=== PATIENT | male | born 1960 | race Hispanic/Latino ===

== ENCOUNTER 2019-04-16 10:30 | Emergency (ER) | payer SELFPAY ==
[~2019-04-16] VITALS: Ht 175.3 cm; Wt 86.0 kg
[~2019-04-16 10:30] MED LIST: NAPROXEN250 MG PO; ROBAXIN-750750 MG PO
[2019-04-16 11:16] LABS: ANION GAP 14 (6-22 (CALC)); BUN 21 mg/dL (9-20); BUN/CREATININE RATIO 16 (12-20 (CALC)); CARBON DIOXIDE 27 mmol/l (22-30); CHLORIDE 107 mmol/l (95-108); CREATININE 1.3 mg/dL (0.7-1.3); ETHYL ALCOHOL 0 mg/dl (0-30); GFR 57 ML/MIN (>=60 (CALC)); GFR FOR AFR.AMER. > 60 ML/MIN (>=60 (CALC)); POTASSIUM 4.2 mmol/l (3.5-5.1); SODIUM 143 mmol/l (137-146)
[2019-04-16 11:19] LABS: HEMATOCRIT 39.4 % (39.0-50.0); HEMOGLOBIN 12.9 g/dl (14.0-18.0); IMMATURE GRANULOCYTES 0.3 % (0.0-5.0); MEAN CELL VOLUME 85.7 fL CALC (80.0-100.0); MEAN CORPUSCULAR HGB CONC 32.7 g/L CALC (32.0-36.0); NEUT# 4.71 thou/uL (1.82-7.42); RED BLOOD COUNT 4.6 mill/uL (4.70-6.10); RED CELL DISTRI WIDTH 13.9 % (11.5-15.5)
[2019-04-16] MEDS ORDERED: MECLIZINE25 MG PO (12:38)
[2019-04-16 12:49] VITALS: BP 139/65
== END 2019-04-16 13:04 | disposition home or self-care (01) | DRG 149 ==
LOC: ED 10:30
PROVIDERS: Family Medicine
DX: R42 Dizziness and giddiness (principal)
CPT/HCPCS: Q9967

== ENCOUNTER 2019-04-23 13:12 | Emergency (ER) | payer SELFPAY ==
[~2019-04-23] VITALS: Ht 175.3 cm; Wt 100.0 kg
[~2019-04-23 13:12] MED LIST changes: +MECLIZINE25 MG PO
[2019-04-23 14:03] LABS: HEMATOCRIT 38.3 % (39.0-50.0); HEMOGLOBIN 12.7 g/dl (14.0-18.0); IMMATURE GRANULOCYTES 0.6 % (0.0-5.0); MEAN CELL VOLUME 85.5 fL CALC (80.0-100.0); MEAN CORPUSCULAR HGB 28.3 pG CALC (26.0-32.0); MEAN CORPUSCULAR HGB CONC 33.2 g/L CALC (32.0-36.0); NEUT# 4.63 thou/uL (1.82-7.42); RED BLOOD COUNT 4.48 mill/uL (4.70-6.10); RED CELL DISTRI WIDTH 14.3 % (11.5-15.5)
[2019-04-23 14:24] LABS: ALKALINE PHOSPHATASE 119 u/l (38-126); BILIRUBIN, TOTAL 0.6 mg/dL (0.0-1.4); BUN 55 mg/dL (9-20); CHLORIDE 105 mmol/l (95-108); CPK 601 u/l (52-200); SGOT/AST 56 u/l (17-59); SODIUM 140 mmol/l (137-146)
[2019-04-23 14:25] LABS: ALBUMIN 4.9 g/dL (3.2-5.0); ANION GAP 20 (6-22 (CALC)); BUN/CREATININE RATIO 12 (12-20 (CALC)); CARBON DIOXIDE 20 mmol/l (22-30); CREATININE 4.6 mg/dL (0.7-1.3); GFR 13 ML/MIN (>=60 (CALC)); GFR FOR AFR.AMER. 16 ML/MIN (>=60 (CALC)); POTASSIUM 5.4 mmol/l (3.5-5.1); TOTAL PROTEIN 8.6 g/dL (6.3-8.2)
[2019-04-23 14:54] LABS: TSH, 3RD GENERATION 1.19 uIU/mL (0.47 - 4.68)
[2019-04-23 16:58] VITALS: BP 120/72
== END 2019-04-23 17:00 | disposition short-term general hospital (02) | DRG 683 ==
LOC: ED 13:12 → ED-I 13:44 → ED 17:00
PROVIDERS: Emergency Medicine
DX: N17.9 Acute kidney failure, unspecified (principal); M62.82 Rhabdomyolysis; E87.5 Hyperkalemia

== ENCOUNTER 2021-05-19 08:06 | Inpatient (IN) | payer OTHER ==
[~2021-05-19] VITALS: Ht 170.2 cm; Wt 90.3 kg
--- NOTE | 2021-05-19 08:20 | NUR ---
PATIENT AMBULATED TO ROOM WITH STEADY GAIT AND PHYSICIAN NOTIFIED OF PATIENT STSTUA
[2021-05-19 08:51] LABS: HEMATOCRIT 41.2 % (39.0-50.0); IMMATURE GRANULOCYTES 0.2 % (0.0-5.0); MEAN CELL VOLUME 84.9 fL CALC (80.0-100.0); MEAN CORPUSCULAR HGB 28.9 pG CALC (26.0-32.0); NEUT# 3.84 thou/uL (1.82-7.42); RED BLOOD COUNT 4.85 mill/uL (4.70-6.10); RED CELL DISTRI WIDTH 14.3 % (11.5-15.5)
[2021-05-19 09:06] LABS: BILIRUBIN, TOTAL 0.5 mg/dL (0.0-1.4); C-REACTIVE PROTEIN 4.5 mg/dL (0-0.9); POTASSIUM 4.9 mmol/l (3.5-5.1); TOTAL PROTEIN 7.5 g/dL (6.3-8.2)
[2021-05-19 09:09] LABS: ALBUMIN 3.9 g/dL (3.2-5.0); CREATININE 2.4 mg/dL (0.7-1.3)
--- NOTE | 2021-05-19 10:28 | NUR ---
ATTEMPT TO CALL REPORT TO FLOOR
--- NOTE | 2021-05-19 10:40 | NUR ---
REPORT GIVEN TO FLOOR
[2021-05-19 11:05] VITALS: BP 127/45
--- NOTE | 2021-05-19 11:27 | NUR ---
RECEIVED REPORT FROM ER NURSE/CARMENZA ALL QUESTIONS ANSWERED.
--- NOTE | 2021-05-19 11:47 | NUR ---
PT ARRIVED ON FLOOR FROM ER VIA STRETCHER. PT ALERT AND ORIENTED X4 PT DENIES ANY PAIN AT THIS TIME. VS AND ASSESSMENT COMPLETE. LUNG SOUNDS DIMINISHED. ABDOMEN SOFT AND NONTENDER, BOWEL SOUNDS ACTIVE X4 PERIPHERAL PULSES STRONG AND PALPABLE. PT AMBULATORY AND AMBULATED TO BED WITHOUT ANY DISTRESS OR DISCOMFORT. IV PATENT AND FLUSHED. PERRLA. SAFETY PRECAUTIONS ARE IN PLACE AND CALL LIGHT WITHIN PATIENTS REACH. WILL MONITOR PATIENT CLOSELY
[2021-05-19 15:22] VITALS: BP 110/51
--- NOTE | 2021-05-19 16:00 | NUR ---
PT SLEEPING RESTING COMFORTABLY. PT HAS NO NEEDS AT THIS TIME. WILL CONTINUE TO MONITOR PATIENT CLOSELY
[2021-05-19 19:07] VITALS: BP 118/58
--- NOTE | 2021-05-19 20:00 | NUR ---
PATIENT AWAKE IN BED. ROMANSH SPEAKING. ALERT AND ORIENTED X3. ABLE TO MAKE NEEDS KNOWN. C/O COUGH. RESPIRATIONS EVEN AND UNLABORED, HR REG. DENIES PAIN. O2 4L N/C IN PLACE. ON TELEMETRY. VAD S/L. NO ACUTE DISTRESS OBSERVED. ASSESSMENT COMPLETED AND CHARTED. BED IN LOW POSITION. CALL LIGHT WITHIN REACH. FALL PRECAUTIONS IN PLACE.
[2021-05-20 00:55] VITALS: BP 103/48
--- NOTE | 2021-05-20 01:28 | NUR ---
RESTING WITH EYES CLOSED. NO ACUTE DISTRESS OBSERVED.
[2021-05-20 04:35] VITALS: BP 104/49
--- NOTE | 2021-05-20 05:02 | NUR ---
RESTING QUIETLY. NO ACUTE DISTRESS OBSERVED. BED IN LOW POSITION. CALL LIGHT WITHIN REACH.
[2021-05-20 05:42] LABS: HEMATOCRIT 36.9 % (39.0-50.0); IMMATURE GRANULOCYTES 0.2 % (0.0-5.0); MEAN CELL VOLUME 85.8 fL CALC (80.0-100.0); MEAN CORPUSCULAR HGB 27.9 pG CALC (26.0-32.0); MEAN CORPUSCULAR HGB CONC 32.5 g/dL CAL (32.0-36.0); NEUT# 3.12 thou/uL (1.82-7.42); RED BLOOD COUNT 4.3 mill/uL (4.70-6.10); RED CELL DISTRI WIDTH 14.2 % (11.5-15.5)
[2021-05-20 06:11] LABS: ALBUMIN 3.2 g/dL (3.2-5.0); BILIRUBIN, TOTAL 0.3 mg/dL (0.0-1.4); C-REACTIVE PROTEIN 4.7 mg/dL (0-0.9); CREATININE 1.8 mg/dL (0.7-1.3); POTASSIUM 4.9 mmol/l (3.5-5.1); TOTAL PROTEIN 6.4 g/dL (6.3-8.2)
[2021-05-20 08:00] VITALS: BP 109/74
--- NOTE | 2021-05-20 08:00 | NUR ---
PT AWAKE AND RESTING IN BED. PT DENIES PAIN OF SOB. VS AND ASSESSMENT COMPLETE. LUNGS DIMINISHED. ABDOMEN SOFT AND NONTENDER. BOWEL SOUNDS ACTIVE. IV PATENT AND FLUSHED. PERIPHERAL PULSES PALPALBLE. SAFETY PRECAUTIONS IN PLACE AND CALL LIGHT WITHIN PATIENTS REACH. WILL MONITOR PATIENT CLOSELY
[2021-05-20 10:48] VITALS: BP 113/43
--- NOTE | 2021-05-20 12:00 | NUR ---
PT RESTING IN BED. PT DENIES ANY NEEDS OR CONCERNS. SAFETY MEASURES MAINTAINED AND CALL LIGHT WITHIN REACH. WILL CONTINUE TO MONITOR PATIENT CLOSELY
[2021-05-20 15:33] VITALS: BP 119/37
--- NOTE | 2021-05-20 16:00 | NUR ---
PT DENIES PAIN. PT HAS NO NEEDS AT THIS TIME. SAFETY MEASURES MAINTAINED AND CALL LIGHT WITHIN REACH. WILL CONTINUE TO MONITOR PATIENT
[2021-05-20 19:00] VITALS: BP 140/55
--- NOTE | 2021-05-20 19:40 | NUR ---
PATIENT ALERT. PANAMANIAN SPEAKING. OBSERVED SITTING ON SIDE OF BED. ASSESSMENT COMPLETE. NO COMPLAINTS VOICED AT THIS TIME. O2 AT 6L NC. SHORTNESS OF BREATH UPON EXERTION. CALL LIGHT AND BELONGINGS IN REACH.
--- NOTE | 2021-05-20 21:40 | NUR ---
RESPIRATORY CAME TO ROOM DUE TO PATIENTS OXYGEN SATURATION AT 85% ON 6L NC. RESPIRATORY CHANGED PATIENT TO 9L HIGH FLOW. OXYGEN SATURATION WENT UP TO 92%.
--- NOTE | 2021-05-20 22:50 | NUR ---
PATIENT WITH SHORTNESS OF BREATH. ENCOURAGED PATIENT TO LAY PRONE TO HELP INCREASE LUNG EXPANSION. PATIENT ATTEMPTED TOO AND TURNED BACK OVER TO HIS BACK/SIDE AND THEN SAT UP ON SIDE OF BED. OXYGEN SATURATION DECREASED DOWN TO 54% OXYGEN INCREASED TO 74%. RT NOTIFIED.
--- NOTE | 2021-05-20 23:00 | NUR ---
RESPIRATORY INCREASED PATIENTS OXYGEN TO 15L HIGH FLOW. OXYGEN SATURATION RANGING FROM 85%-88%.
--- NOTE | 2021-05-20 23:26 | NUR ---
CALLED DOCTOR BUSINESS DEVELOPMENT EXECUTIVE AND RECEIVED ORDER TO TRANSFER PATIENT TO ICU TO BE PUT ON VAPOTHERM DUE TO DECREASED OXYGEN SATURATIONS.
--- NOTE | 2021-05-20 23:45 | NUR ---
TRANSFERRED PATIENT VIA STRETCHER TO ICU. GAVE REPORT TO ICU NURSE ASSIGNED TO PATIENT.
--- NOTE | 2021-05-20 23:50 | NUR ---
rec'd from medsurg via bed to icu6. no acute resp distress. sao2 93%. o2 cont 15 l/m high flow cannula. translated per hari stuart pt unable to prone. pt c/o sob. air sampling and monitoring shows sinus rhythm hr 76. ivf infusing per [facility] site. fall & air/contact precaution cont.
[2021-05-21] VITALS (16 sets, daily range): BP systolic 113–156; BP diastolic 51–73
--- NOTE | 2021-05-21 02:00 | NUR ---
eyes closed. no resp diff.
--- NOTE | 2021-05-21 04:00 | NUR ---
eyes closed. o2 cont per high flow.
--- NOTE | 2021-05-21 07:00 | NUR ---
ASSUMED CARE OF PT AFTER BEDSDIE REPORT, NO S/S OF DISTRESS NOTED, PT RESTING IN BED, DENIES ANY NEEDS AT THIS TIME
--- NOTE | 2021-05-21 09:45 | NUR ---
PT MEDICATED PER EMAR, DENIES ANY NEEDS OR PAIN, NO S/S OF DISTRESS NOTED.
[2021-05-21 09:56] LABS: HEMATOCRIT 38.8 % (39.0-50.0); HEMOGLOBIN 12.5 g/dl (14.0-18.0); IMMATURE GRANULOCYTES 0.5 % (0.0-5.0); MEAN CELL VOLUME 84.7 fL CALC (80.0-100.0); MEAN CORPUSCULAR HGB 27.3 pG CALC (26.0-32.0); MEAN CORPUSCULAR HGB CONC 32.2 g/dL CAL (32.0-36.0); NEUT# 6.79 thou/uL (1.82-7.42); RED BLOOD COUNT 4.58 mill/uL (4.70-6.10); RED CELL DISTRI WIDTH 14.4 % (11.5-15.5)
[2021-05-21 10:14] LABS: ALBUMIN 3.2 g/dL (3.2-5.0); CREATININE 1.7 mg/dL (0.7-1.3); POTASSIUM 4.4 mmol/l (3.5-5.1); TOTAL PROTEIN 6.6 g/dL (6.3-8.2)
[2021-05-21 10:16] LABS: BILIRUBIN, TOTAL 0.5 mg/dL (0.0-1.4)
--- NOTE | 2021-05-21 11:25 | NUR ---
no changes at this time.
--- NOTE | 2021-05-21 13:30 | NUR ---
PT SITTING ON SIDE OF BED, SOB ON EXERTION, VSS.
--- NOTE | 2021-05-21 14:55 | NUR ---
pt resting in bed, denies needs, laying on right side. no s/s of distress noted
--- NOTE | 2021-05-21 22:00 | NUR ---
watching tv. no distress.
--- NOTE | 2021-05-21 22:00 | NUR ---
awake. no resp diff. o2 cont 15 l/m. lithopone mill worker shows sinus rhythm. #18 rac ns infusing @ 50cchr. po fluids taken fair. voids per urinal. fall & air/contact precautions cont.
[2021-05-22] VITALS (15 sets, daily range): BP systolic 116–155; BP diastolic 41–76
--- NOTE | 2021-05-22 00:05 | NUR ---
eyes closed. no distress. o2 cont.
--- NOTE | 2021-05-22 02:00 | NUR ---
resting quietly. resps even & unlabored. o2 cont.
--- NOTE | 2021-05-22 05:22 | NUR ---
lab here. blood drawn.
[2021-05-22 06:11] LABS: HEMATOCRIT 37.8 % (39.0-50.0); HEMOGLOBIN 12.5 g/dl (14.0-18.0); MEAN CELL VOLUME 83.6 fL CALC (80.0-100.0); MEAN CORPUSCULAR HGB 27.7 pG CALC (26.0-32.0); MEAN CORPUSCULAR HGB CONC 33.1 g/dL CAL (32.0-36.0); RED BLOOD COUNT 4.52 mill/uL (4.70-6.10); RED CELL DISTRI WIDTH 14.4 % (11.5-15.5)
[2021-05-22 06:20] LABS: ANION GAP 13 (6-22 (CALC)); BUN 30 mg/dL (8-23); BUN/CREATININE RATIO 24 (12-20 (CALC)); CARBON DIOXIDE 20 mmol/l (22-30); CHLORIDE 109 mmol/l (95-108); CREATININE 1.3 mg/dL (0.7-1.3); GFR 56 ML/MIN (>=60 (CALC)); GFR FOR AFR.AMER. > 60 ML/MIN (>=60 (CALC)); POTASSIUM 4.8 mmol/l (3.5-5.1); SODIUM 137 mmol/l (137-146)
--- NOTE | 2021-05-22 07:00 | NUR ---
ASSUMED CARE OF PT FROM AMREK BERRY. PT RESTING IN BED, NO S/S OF DISTRESS NOTED.
--- NOTE | 2021-05-22 08:02 | NUR ---
NO CHANGES AT THIS TIME. MATERIALS HANDLING COORDINATOR TO MONITOR.
--- NOTE | 2021-05-22 08:08 | NUR ---
during am assessment of pt, had him take off his pants and underwear, assistted with bed bath, and oral care, pt put in clean gown. no s/s of distress noted
--- NOTE | 2021-05-22 09:30 | NUR ---
PT RESTING IN BED, DENIES ANY NEEDS, NO S/S OF DISTRESS NOTED.
--- NOTE | 2021-05-22 11:30 | NUR ---
PT REFUSED LUNCH TRAY
--- NOTE | 2021-05-22 13:00 | NUR ---
PT UP TO RECLINER. NO S/S OF DISTRESS NOTED
--- NOTE | 2021-05-22 15:30 | NUR ---
PT BACK TO BED, O2 WEANED TO 10L HIGH FLOW CANNULA, NO S/S OF DISTRESS NOTED.
--- NOTE | 2021-05-22 18:00 | NUR ---
PT RESTING IN BED WATCHIN TV, ENCOURAGED TO LAY ON SIDE.
--- NOTE | 2021-05-22 20:00 | NUR ---
PT REPOSITIONS SELF IN BED ALERT COOPERATIVE O2 HFNC AT 10L/MIN SAT 89-93 CHEST WITH DIMINISHED BREATH SOUNDS IV NS INFUSING TO RT AC SITE AT 50CC/HR DENIES C/O VOIDING WELL AND TAKING PO FLUIDS WELL
--- NOTE | 2021-05-22 22:06 | NUR ---
pt restless sitting o side of bed o2 sat drops to low 80s with activity
--- NOTE | 2021-05-22 22:57 | NUR ---
O2 INCREASED TO 12L/MIN VIA HFNC FOR CONSISTANT SATS INHIGH 80S
[2021-05-23] VITALS (18 sets, daily range): BP systolic 122–165; BP diastolic 54–86
--- NOTE | 2021-05-23 00:22 | NUR ---
o2 increased to 15l/min via hfnc for low sats very restless pulling off bp cuff and pulse ox and id band
--- NOTE | 2021-05-23 01:27 | NUR ---
ROBITUSSIN GIVEN FOR COUGH
--- NOTE | 2021-05-23 04:28 | NUR ---
AWAKE NOT RESTLESS SAT DROPS WITH AND ACTIVITY OR COUGHING MONITOR SHOW SR
--- NOTE | 2021-05-23 04:40 | NUR ---
SATS 79% PT SITTING ON SIDE OF BED REFUSES TO PRONE IN BED RT CALLED TO START VAPOTHERM
--- NOTE | 2021-05-23 04:51 | NUR ---
RT HERE PLACED PT ON VAPOTHERM 40L 100% PT REFUSES TO WEAR VAPOTHERM PULLING IT OFF EXPLAINED IN [place] THE INPORTANCE OF LEAVING IT ON AND LYING IN THE PRONE POSITION PT REFUSES TO LIE PRONE.
[2021-05-23 06:06] LABS: HEMATOCRIT 40.2 % (39.0-50.0); HEMOGLOBIN 13.3 g/dl (14.0-18.0); IMMATURE GRANULOCYTES 0.7 % (0.0-5.0); MEAN CELL VOLUME 83.2 fL CALC (80.0-100.0); MEAN CORPUSCULAR HGB 27.5 pG CALC (26.0-32.0); MEAN CORPUSCULAR HGB CONC 33.1 g/dL CAL (32.0-36.0); NEUT# 9.38 thou/uL (1.82-7.42); RED BLOOD COUNT 4.83 mill/uL (4.70-6.10); RED CELL DISTRI WIDTH 14.3 % (11.5-15.5)
[2021-05-23 06:27] LABS: ALBUMIN 3.5 g/dL (3.2-5.0); ALKALINE PHOSPHATASE 114 u/l (38-126); ANION GAP 16 (6-22 (CALC)); BUN 35 mg/dL (8-23); BUN/CREATININE RATIO 29 (12-20 (CALC)); C-REACTIVE PROTEIN 4.7 mg/dL (0-0.9); CARBON DIOXIDE 16 mmol/l (22-30); CHLORIDE 111 mmol/l (95-108); CREATININE 1.2 mg/dL (0.7-1.3); GFR > 60 ML/MIN (>=60 (CALC)); GFR FOR AFR.AMER. > 60 ML/MIN (>=60 (CALC)); POTASSIUM 4.8 mmol/l (3.5-5.1); SGOT/AST 98 u/l (19-48); SODIUM 138 mmol/l (137-146); TOTAL PROTEIN 7.1 g/dL (6.3-8.2)
[2021-05-23 06:39] LABS: BILIRUBIN, TOTAL 0.8 mg/dL (0.0-1.4)
--- NOTE | 2021-05-23 07:05 | NUR ---
REPORT RECEIVED FROM DIAMOND WARE
--- NOTE | 2021-05-23 07:50 | NUR ---
PT RESTING IN SEMI FOWLERS POSITION,A&O X3 WITH TRANSLATION PROVIDED BY JOHANNYRN;PT ASSISTED TO RECLINER WITH X1 ASSIST AND WEAK GAIT;VS OBTAINED AND ASSESSMENT COMPLETED;RESPIRATIONS SHALLOW ON VAPOTHERM 40L AND 100%, DIMINISHED LUNG SOUND WITH NON-PRODUCTIVE COUGH; O2 SATS HIGH 70'S WHILE IN CHAIR;PT EDUCATED ON PRONING POSITION AND VERBALIZES UNDERSTANDING;RE-POSITIONED INTO BED IN PRONE POSITION AND O2 SATS NATALY TO LOW 90'S;ABDOMEN SOFT ON PALPATION AND ACTIVE IN ALL 4 QUADRANTS;STRONG PEDAL PULSES;SKIN INTACT;CARDIAC MONTIORING IN PLACE;#18G TO RAC INFUSING NS @ 50ML/HR,SITE APPEARS HEALTHY;PT REMAINS IN AIR/CONTACT PRECAUTIONS DUE TO COVID19 DX;PT DENIES ANY ADDITIONAL NEEDS AND IS ENCOURAGED TO CALL FOR ASSISTANCE IF NEEDED;FALL PRECAUTIONS IN PLACE WITH BED IN THE LOWEST POSITION AND CALL LIGHT IN REACH;WILL CONTINUE TO MONITOR
--- NOTE | 2021-05-23 08:17 | NUR ---
RT AT BEDSIDE
--- NOTE | 2021-05-23 09:35 | NUR ---
AT BEDSIDE DISCUSSING POC WITH PT.
--- NOTE | 2021-05-23 09:45 | NUR ---
PT MEDICATED WITH PRN TYLENOL 650MG PO FOR GENERALIZED PAIN AT THIS TIME,WILL CONTINUE TO MONITOR FOR EFFECTIVENESS
--- NOTE | 2021-05-23 10:20 | NUR ---
IV SITE REMOVED TO LAC WITH CATHETER INTACT, NEW #22G STARTED TO LW ON 1ST ATTEMPT BY THIS WRITTER.PT TOLERATED WELL;WILL CONTINUE TO MONITOR
--- NOTE | 2021-05-23 11:14 | NUR ---
PT RESTING IN SEMI FOWLERS POSITION;RESPIRATIONS SHALLOW ON VAPOTHERM 40L/100%;PT DENIES ANY CURRENT PAIN OR NEEDS;CARDIAC MONTIORING IN PLACE;IV SITE PATENT INFUSING ABX PER ORDER;PT ENCOURAGED TO CALL FOR ASSISTANCE IF NEEDED;CALL LIGHT IN REACH;WILL CONTINUE TO MONITOR
--- NOTE | 2021-05-23 13:10 | NUR ---
PT RESTING IN SEMI FOWLERS POSITION;RESPIRATIONS REMAIN SHALLOW ON VAPOTHERM 40L AND 100%;PT DENIES ANY CURRENT PAIN OR DISCOMFORTS;CARDIAC MONITORING IN PLACE;IV SITE PATENT INFUSING NS WITH EASE PER ORDER;PT DENIES ANY ADDITIONAL NEEDS AND IS ENCOURAGED TO CALL FOR ASSISTANCE IF NEEDED;CALL LIGHT IN REACH;WILL CONTINUE TO MONITOR
--- NOTE | 2021-05-23 15:10 | NUR ---
PT RESTING AT BEDSIDE;RESPIRATIONS REMAIN SHALLOW ON VAPOTHERM 40L/100%;PT DENIES ANY CURRENT PAIN OR DISCOMFORTS;CARDIAC MONITORING IN PLACE;IV SITE PATENT INFUSING NS WITH EASE PER ORDER;PT DENIES ANY ADDITIONAL NEEDS AND IS ENCOURAGED TO CALL FOR ASSISTANCE IF NEEDED;CALL LIGHT IN REACH;WILL CONTINUE TO MONITOR
--- NOTE | 2021-05-23 17:10 | NUR ---
PT RESTING IN SEMI FOWLERS POSITION;RESPIRATIONS SHALLOW ON VAPOTHERM 40L/100%;PT DENIES ANY CURRENT PAIN OR DISCOMFORTS;CARDIAC MONITORING IN PLACE;PT ASSISTED TO BEDSIDE COMMODE AN HAD ON MODERATE/FORMED BM;PT RE-POSITIONED BACK INTO BED AT THIS TIME;PT DENIES ANY ADDITIONAL NEEDS AND IS ENCOURAGED TO CALL FOR ASSISTANCE IF NEEDED;CALL LIGHT IN REACH;WILL CONTINUE TO MONITOR
--- NOTE | 2021-05-23 19:00 | NUR ---
RECEIVED REPORT FROM NURSE VILLELA, ASSUMED PATIENT CARE, PATIENT APPEARS TO BE SLEEPING WITH EYES CLOSED, NOT IN DISTRESS, CALL LIGHT AT REACH.
--- NOTE | 2021-05-23 20:00 | NUR ---
PATIENT GUINEAN SPEAKING ONLY BUT ABLE TO UNDERSTAND LITTLE HUNGARIAN, REMAINS ON AIR/CONTACT PRECAUTION FOR COVID 19, HOOKED TO VAPOTHERM SETTING 40LPM/FIO2 100%, EXERTIONAL DYSPNEA NOTED, WITH NON PRODUCTIVE COUGH WITHCH PATIENT ALSO TRIED ACTING IT OUT TO DESCRIBE COUGH, LUNG SOUNDS DIMINISHED, ACTIVE BOWEL SOUNDS, LBM 05/23, WITH ONGOING IV NS @ 50CC/HR INFUSING WELL ON LEFT WRIST, CALL LIGHT AT REACH.
--- NOTE | 2021-05-23 22:00 | NUR ---
PATIENT REMOVED BP CUFF, EDUCATED THAT WE NEED IT TO MONITOR VITAL SIGNS, AGREED TO PUT BACK. URINAL EMPTIED.CALL LIGHT AT REACH.
[2021-05-24] VITALS (20 sets, daily range): BP systolic 130–162; BP diastolic 56–86
--- NOTE | 2021-05-24 | NUR ---
SAI C/O COUGHING, REQUESTED COUGH MEDICATION, GIVEN, CURRENTLY RESTING EYES CLOSED, CALL LIGHT AT REACH.
--- NOTE | 2021-05-24 02:13 | NUR ---
PATIENT ACCIDENTALLY PULLED IV, NEW IV REINSERTED ON LEFT FOREARM G 20 PATENT FLUSHES WELL.
--- NOTE | 2021-05-24 04:00 | NUR ---
PATIENT COUGHING SPELL, PATIENT TURNED TO HIS SIDE, REFUSED TO PRONE AT THIS TIME, PATIENT WAS WATCHING TV, NEW SPO2 PROBE PLACE ON PATIENTS RT DIGIT.
[2021-05-24 05:33] LABS: HEMATOCRIT 38.5 % (39.0-50.0); HEMOGLOBIN 12.8 g/dl (14.0-18.0); MEAN CELL VOLUME 83.9 fL CALC (80.0-100.0); MEAN CORPUSCULAR HGB 27.9 pG CALC (26.0-32.0); MEAN CORPUSCULAR HGB CONC 33.2 g/dL CAL (32.0-36.0); RED BLOOD COUNT 4.59 mill/uL (4.70-6.10); RED CELL DISTRI WIDTH 14.3 % (11.5-15.5)
[2021-05-24 05:57] LABS: ANION GAP 14 (6-22 (CALC)); BUN 35 mg/dL (8-23); BUN/CREATININE RATIO 30 (12-20 (CALC)); CARBON DIOXIDE 18 mmol/l (22-30); CHLORIDE 113 mmol/l (95-108); CREATININE 1.2 mg/dL (0.7-1.3); GFR > 60 ML/MIN (>=60 (CALC)); GFR FOR AFR.AMER. > 60 ML/MIN (>=60 (CALC)); POTASSIUM 4.6 mmol/l (3.5-5.1); SODIUM 140 mmol/l (137-146)
--- NOTE | 2021-05-24 06:15 | NUR ---
PATIENT SPO2 RANGING 85-87%, RT AWARE, CURRENTLY ASSESSING PATIENT.PATIENT REFUSES TO TURN ON HIS SIDE ANS REFUSES TO PRONE AT THIS TIME.
--- NOTE | 2021-05-24 06:34 | NUR ---
O2 SATS DROPPED TO LOW 80'S. PT. REFUSES TO PRONE. PLACED NRB OVER VAPOTHERM.
--- NOTE | 2021-05-24 06:37 | NUR ---
RT RAFAEL SOSA PATIENT REMAINS ON SPO2 87%, PATIENT PLACED ON A NON REBREATHER WITH THE VAPOTHERM @ 40LPM FIO2 100%.
--- NOTE | 2021-05-24 07:00 | NUR ---
REPORT RECEIVED FROM DIAMOND URENA
--- NOTE | 2021-05-24 07:15 | NUR ---
PT RESTING IN SEMI FOWLERS POSITION,A&O X3 MOSTLY THAI SPEAKING WITH TRANSLATION PROVIDED BY DIAMOND HUDSON AND JOSE BARROSO;VS OBTAINED AND ASSESSMENT COMPLETED;PT DENIES ANY CURRENT PAIN OR DISCOMFORTS,PAIN SCALE AND REPORTING EDUCATED;RESPIRATIONS SHALLOW ON VAPOTHERM 40L/100% AT THIS TIME WITH O2 SATS HIGH 80'S; PT EDUCATED AND RE-POSITIONED INTO PRONE POSITIONING;CLEAR/DIMINISHED LUNG SOUNDS WITH NON-PRODUCTIVE COUGH;ABDOMEN SOFT ON PALPATION AND ACTIVE IN ALL 4 QUADRANTS;STRONG PEDAL PULSES;SKIN INTACT;CARDIAC MONITORING IN PLACE;#20G TO LFA INFUSING NS @ 50ML/HR,SITE APPEARS HEALTHY;PT REMAINS IN AIR/CONTACT PRECAUTIONS DUE TO COVID19 DX;PT DENIES ANY ADDITIONAL NEEDS AND IS ENCOURAGED TO CALL FOR ASSISTANCE IF NEEDED;FALL PRECAUTIONS IN PLACE WITH BED IN THE LOWEST POSITION AND CALL LIGHT IN REACH;WILL CONTINUE TO MONITOR
--- NOTE | 2021-05-24 08:15 | NUR ---
PT MEDICATED WITH PRN TYLENOL 650MG PO FOR GENERALIZED PAIN RATING 8/10 ON THE PAIN SCALE,WILL CONTINUE TO MONITOR FOR EFFECTIVENESS
--- NOTE | 2021-05-24 09:40 | NUR ---
AT BEDSIDE DISCUSSING POC.
--- NOTE | 2021-05-24 10:47 | NUR ---
XRAY AT BEDSIDE
--- NOTE | 2021-05-24 11:10 | NUR ---
PT RESTING IN SEMI FOWLERS POSITION;RESPIRATIONS SHALLOW ON VAPOTHERM 40L/100% AT THIS TIME;PT DENIES ANY CURRENT PAIN OR DISCOMFORTS;CARDIAC MONITORING IN PLACE;IV SITE PATENT INFUSING ABX WITH EASE;PT DENIES ANY ADDITIONAL NEEDS AND IS ENCOURAGED TO CALL FOR ASSISTANCE IF NEEDED;CALL LIGHT IN REACH;WILL CONTINUE TO MONITOR
--- NOTE | 2021-05-24 13:10 | NUR ---
PT RESTING IN SEMI FOWLERS POSITION;RESPIRATIONS REMAIN SHALLOW ON VAPOTHERM 40L/100%;PT DENIES ANY CURRENT PAIN OR DISCOMFORTS;CARDIAC MONITORING IN PLACE;IV SITE PATENT;PT ASSISTED TO BEDSIDE COMMODE AND HAD ONE LOOSE/BROWN BM;PT RE-POSITIONED BACK INTO BED;PT ENCOURAGED TO CALL FOR ASSISTANCE IF NEEDED;FALL PRECAUTIONS IN PLACE WITH CALL LIGHT IN REACH;WILL CONTINUE TO MONITOR
--- NOTE | 2021-05-24 15:10 | NUR ---
PT RESTING IN SEMI FOWLERS POSITION;RESPIRATIONS SHALLOW ON VAPOTHERM 40L/100%;PT DENIES ANY CURRENT PAIN OR DISCOMFORTS;CARDIAC MONITORING IN PLACE;IV SITE PATENT INFUSING ABX WITH EASE;PT ENCOURAGED TO CALL FOR ASSISTANCE IF NEEDED;CALL LIGHT IN REACH;WILL CONTINUE TO MONITOR
--- NOTE | 2021-05-24 16:27 | NUR ---
RT AT BEDSIDE
--- NOTE | 2021-05-24 17:10 | NUR ---
PT RESTING IN SEMI FOWLERS POSITION;RESPIRATIONS SHALLOW ON VAPOTHERM 40L/100%;PT DENIES ANY CURRENT PAIN OR DISCOMFORTS;CARDIAC MONITORING IN PLACE;IV SITE PATENT;PT ENCOURAGED TO CALL FOR ASSISTANCE IF NEEDED;CALL LIGHT IN REACH;WILL CONTINUE TO MONITOR
--- NOTE | 2021-05-24 19:30 | NUR ---
awake. no acute distress. o2 cont 40 l/m 100% vapotherm. director of cardiac rehabilitation shows sinus rhythm hr 86. #20 lfa saline lock. po fluids taken fair. voids per urinal. fall & air/contact precautions cont.
--- NOTE | 2021-05-24 22:00 | NUR ---
eyes closed. no distress. equipment monitor phototypesetting shows sinus rhythm hr 80.
[2021-05-25] VITALS (29 sets, daily range): BP systolic 76–167; BP diastolic 46–81
--- NOTE | 2021-05-25 00:01 | NUR ---
o2 cont per vapotherm. no distress.
--- NOTE | 2021-05-25 01:45 | NUR ---
sao2 shows 74%. nasal cannula off of vapotherm tubing-reattached. sao2 up to 85%. rt here. 100% nrb placed & pt immediately removed. sao2 85-89%. no acute distress.
--- NOTE | 2021-05-25 02:30 | NUR ---
pt put nrb back on (for now). sao2 91-93%.
--- NOTE | 2021-05-25 05:15 | NUR ---
lab here. blood drawn.
[2021-05-25 05:51] LABS: HEMATOCRIT 39.5 % (39.0-50.0); HEMOGLOBIN 12.9 g/dl (14.0-18.0); IMMATURE GRANULOCYTES 2.5 % (0.0-5.0); MEAN CELL VOLUME 84.4 fL CALC (80.0-100.0); MEAN CORPUSCULAR HGB 27.6 pG CALC (26.0-32.0); MEAN CORPUSCULAR HGB CONC 32.7 g/dL CAL (32.0-36.0); NEUT# 11.1 thou/uL (1.82-7.42); RED BLOOD COUNT 4.68 mill/uL (4.70-6.10); RED CELL DISTRI WIDTH 14.1 % (11.5-15.5)
[2021-05-25 06:22] LABS: ALBUMIN 3.3 g/dL (3.2-5.0); ALKALINE PHOSPHATASE 119 u/l (38-126); ANION GAP 12 (6-22 (CALC)); BILIRUBIN, TOTAL 0.9 mg/dL (0.0-1.4); BUN 36 mg/dL (8-23); BUN/CREATININE RATIO 28 (12-20 (CALC)); C-REACTIVE PROTEIN 4.4 mg/dL (0-0.9); CARBON DIOXIDE 20 mmol/l (22-30); CHLORIDE 113 mmol/l (95-108); CREATININE 1.3 mg/dL (0.7-1.3); GFR 56 ML/MIN (>=60 (CALC)); GFR FOR AFR.AMER. > 60 ML/MIN (>=60 (CALC)); POTASSIUM 4.6 mmol/l (3.5-5.1); SGOT/AST 95 u/l (19-48); SODIUM 140 mmol/l (137-146); TOTAL PROTEIN 6.8 g/dL (6.3-8.2)
--- NOTE | 2021-05-25 06:50 | NUR ---
PT SITTING ON THE SIDE OF THE BED. A&O X3. LABORED BREATHING NOTED, VERBAL RELAXATION QUES GIVEN PT APPEARS ANXIOUS , PT NOT RECEPTIVE AT THIS TIME. REPORTS INCREASING DIFFICULTY WITH BREATHING. VAPOTHERM IN PLACE 40L/100% WITH NRB. O2 IN THE MID 80'S. RT NOTIFIED. PT EDUCATED ON THE IMPORTANCE OF PRONING, PT REFUSING TO DO SO AT THIS TIME. CLEAR/DIMINISHED BREATH SOUNDS UPON AUSCULTATION. ACTIVE BOWEL SOUNDS X4, BM 05/24. CURRENTLY ST ON MONITOR WITH A RATE OF 102. #20G LFA HEALTHY AND PATENT. ASSESSMENT COMPLETED. DISCUSSED POC, REINFORCEMENT NEEDED. ISOLATION PRECUATIONS IN PLACE. CALL LIGHT WITHIN REACH.
--- NOTE | 2021-05-25 07:00 | NUR ---
Law [employer] RT AT BEDSIDE. O2 VIA NC & VAPO 86-87%. PT CHANGED TO BIPAP, PT APPEARING ANXIOUS, PT INSTRUCTED TO KEEP BIPAP IN PLACE. O2 NOW 92%. EDUCATED THE PT ON THE NEED FOR BIPAP. CALL LIGHT WITHIN REACH.
--- NOTE | 2021-05-25 07:10 | NUR ---
VERBAL ORDER OBTAINED FOR ATIVAN 1 MG X1 AND XANAX 0.25 MG PO Q6 PRN FOR ANXIETY.
--- NOTE | 2021-05-25 07:20 | NUR ---
IV ATIVAN GIVEN. IV REMAINS HEALTHY AND PATENT. PT ADVISED TO KEEP BIPAP ON. O2 TO BE MONITORED.
--- NOTE | 2021-05-25 07:30 | NUR ---
PT RESTLESS AND AGITATED. PT ATTMEPTING TO GET OUT OF BED, COMBATIVE, BIPAP REMOVED AND BROKEN APART PT REFUSING TO PUT IT BACK ON. O2 65-68%. RAPID RESPONSE CALLED. DR LIAO NOTIFIED. PT TO BE INTUBATED.
--- NOTE | 2021-05-25 07:40 | NUR ---
@ 0740 - RT, Law FIELDS, THIS KEG RAISER, AND Celestino MELENDEZ CRNA AT BEDSIDE FOR INTUBATION. 150 DIPROVAN MG AND 120 MG ANECTINE IVP ADMINISTERED BY Celestino MELENDEZ CRNA. 8 ETTUBE, 23 LIP LINE SECURED WITH MCGRATH, 250 ML NS BOLUS ADMINISTERED PRIOR TO INITIATING PROPOFOL DRIP. PROPOFOL 30 MCG INFUSING. 8 MG VECRONIUM IVP GIVEN BY COMMUNITY LIVING SPECIALIST. BILATERAL SOFT WRIST RESTRAINTS PLACED @0800 - #18G RAC INITIATED & 16F NG TUBE PLACED BY Taylor INMAN RN @0810 PROPOFOL SET AT 20 MCG/KG/MIN @0815 - RADIOLODY AT BEDSIDE FOR STAT CXR.
--- NOTE | 2021-05-25 08:55 | NUR ---
RT AT BEDSIDE OBTAINING EKG
--- NOTE | 2021-05-25 09:21 | NUR ---
DR LIAO NOTIFED OF PTS RESTLESSNESS, PROPOFOL 60 MCG/KG/MIN. PT REMAINS WITH EYES CLOSED BUT TURNING HEAD WITH INCREASED RR. VERBAL ORDER OBTAINED TO START VERSED & LEVOPHED. ORDER FAXED TO PHARMACY.
--- NOTE | 2021-05-25 10:38 | NUR ---
abg obtained. informed of critical results. relayed messaage to sales engineer that giv ept time to rest, it pt status deteriorates inform. increase peep when pot bp stablilizes. sales engineer to mariano.
--- NOTE | 2021-05-25 12:10 | NUR ---
PT INTUBATED AND SEDATED. SR ON MONITOR WITH A READING OF 90 BPM. IVS X3 HEALTHY AND PATENT.
--- NOTE | 2021-05-25 12:22 | NUR ---
no changes at this time. barrel cutter to monitor.
--- NOTE | 2021-05-25 13:06 | NUR ---
DR ZAMORANO AT BEDSIDE ATTEMPTING TO PLACE CENTRAL LINE
--- NOTE | 2021-05-25 14:00 | NUR ---
PT REMAINS INTUBATED AND SEDATED. IV DRIPS REMAINS UNCHANGED. CENTRAL LINE REMAINS HEALTHY AND PATENT.
--- NOTE | 2021-05-25 16:00 | NUR ---
PT REMAINS INTUBATED AND SEDATED. LEVOPHED AT 6 MCG/KG/MIN, PROPOFOL 60 MCG/MIN, VERSED 40 ML/HR . COPPOLA TO GRAVITY. #18G RAC REMAINS, #20G'S X2 REMOVED FROM LFA. NG TUBE TO RT NARE HEALTHY, SET TO LIS. GREEN COLORED OUTPUT NOTED. CURRENTLY SR ON MONITOR; O2 95%.
--- NOTE | 2021-05-25 17:49 | NUR ---
PT INTUBATED AND SEDATED. ORAL CARE PROVIDED. PILLOW PLACED ON RT SIDE. PT SUCTIONED WITH YANKER. 300 CC OF YELLOW URINE EMPTIED. BILATERAL SCDS IN PLACE. LEVOPHED 5 MCG/KG. O2 97%. SR WITH A RATE OF 92.
--- NOTE | 2021-05-25 18:36 | NUR ---
CALLED [facility] FOR A PLACEMENT ON THIS PATIENT. SPOKE TO BEN AND WAS GIVEN CONFIRMATION NUMBER [id number].
--- NOTE | 2021-05-25 19:05 | NUR ---
vent cont assisted by pt. manager commission shows sinus rhythm hr 76. ivf infusing per lt subcl tlc. ngt in place draining green. gaona cath in place urine clear yellow. bilat wrist restraints, scds, fall & air/contact precautions cont. requires total care for all needs. turned & repositioned.
--- NOTE | 2021-05-25 22:00 | NUR ---
vent cont assisted by pt. monitoring and evaluation advisor shows sinus rhythm hr 74.
[2021-05-26] VITALS (27 sets, daily range): BP systolic 95–147; BP diastolic 54–74
--- NOTE | 2021-05-26 00:01 | NUR ---
vent cont assisted by pt. no distress. gaona draining well.
--- NOTE | 2021-05-26 02:00 | NUR ---
vent cont assisted by pt. pickling drum operator shows sinus rhythm hr 74.
--- NOTE | 2021-05-26 03:00 | NUR ---
bath given x2 assists. transferred to bed with air mattress x4 assists.
--- NOTE | 2021-05-26 03:30 | NUR ---
blood drawn & sent to lab.
--- NOTE | 2021-05-26 05:24 | NUR ---
rt here. blood drawn.
[2021-05-26 05:53] LABS: HEMATOCRIT 38.2 % (39.0-50.0); HEMOGLOBIN 11.9 g/dl (14.0-18.0); IMMATURE GRANULOCYTES 4.2 % (0.0-5.0); MEAN CORPUSCULAR HGB 28.1 pG CALC (26.0-32.0); MEAN CORPUSCULAR HGB CONC 31.2 g/dL CAL (32.0-36.0); NEUT# 9.74 thou/uL (1.82-7.42); RED BLOOD COUNT 4.23 mill/uL (4.70-6.10); RED CELL DISTRI WIDTH 14.9 % (11.5-15.5)
[2021-05-26 05:56] LABS: MEAN CELL VOLUME 90.3 fL CALC (80.0-100.0)
--- NOTE | 2021-05-26 06:00 | NUR ---
xray here. pcxr obtained.
--- NOTE | 2021-05-26 06:50 | NUR ---
ASSUMED CARE OF PT. PT INTUBATED AND SEDATED WWITH DRIPS INFUSING PER EMAR. NO S/S OF DISTRESS NOTED.
[2021-05-26 07:28] LABS: CREATININE 3.2 mg/dL (0.7-1.3); MAGNESIUM 2.7 mg/dL (1.6-2.3); POTASSIUM 5.6 mmol/l (3.5-5.1)
--- NOTE | 2021-05-26 08:30 | NUR ---
LEVO GTT TO 2 MCGS
--- NOTE | 2021-05-26 08:56 | NUR ---
PEEP DECREASED TO +8.
--- NOTE | 2021-05-26 10:00 | NUR ---
LEVO GTT OFF, VSS, NO S/S OF DISTRESS NOTED.
--- NOTE | 2021-05-26 13:00 | NUR ---
PT INTUBATED AND SEDATED, NO CHANGES IN CONDITION. NO S/S OF DISTRESS NOTED.
--- NOTE | 2021-05-26 15:00 | NUR ---
NO CHANGES IN PT CONDITION NOTED. MEDICATED PER EMAR.
--- NOTE | 2021-05-26 17:45 | NUR ---
PT CONDITION UNCHANGED, LEVO GTT STILL ON HOLD, NO S/S OF DISTRESS NOTED.
--- NOTE | 2021-05-26 19:00 | NUR ---
REPORT RECEIVED FROM Marycruz HILLIARD RN, CARE OF PT ASSUMED AT THIS TIME.
[2021-05-27] VITALS (33 sets, daily range): BP systolic 114–160; BP diastolic 54–78
--- NOTE | 2021-05-27 04:38 | NUR ---
PCXR IN ROOM.
[2021-05-27 05:37] LABS: HEMATOCRIT 33.8 % (39.0-50.0); HEMOGLOBIN 10.8 g/dl (14.0-18.0); MEAN CORPUSCULAR HGB 28.1 pG CALC (26.0-32.0); NEUT# 6.84 thou/uL (1.82-7.42); RED BLOOD COUNT 3.84 mill/uL (4.70-6.10); RED CELL DISTRI WIDTH 14.9 % (11.5-15.5)
--- NOTE | 2021-05-27 05:57 | NUR ---
Deya BLACK SHEET ROCK FINISHER IN ROOM COLLECTING ABG.
[2021-05-27 06:02] LABS: C-REACTIVE PROTEIN 5.6 mg/dL (0-0.9); CREATININE 4.1 mg/dL (0.7-1.3)
[2021-05-27 06:09] LABS: POTASSIUM 5.2 mmol/l (3.5-5.1)
[2021-05-27 06:36] LABS: IMMATURE GRANULOCYTES 7.4 % (0.0-5.0)
--- NOTE | 2021-05-27 07:00 | NUR ---
ASSUMED CARE OF PT. INTUBATED AND SEDATED PER EMAR. NO S/S OF DISTRESS NOTED.
--- NOTE | 2021-05-27 15:30 | NUR ---
BATHED PT, AND DID LINEN CHANGE WITH Celestino JOHNSON CNA. NO S/S OF DISTRESS NOTED
--- NOTE | 2021-05-27 15:50 | NUR ---
SPOKE WITH TAYE, [phone], PT EMERGENCY CONTACT, ABOUT PT CONDITION AND THE NEED TO SPEAK WITH FAMILY MEMBERS. SHE WOULD LIKE TO COME IN TO SEE PT.
--- NOTE | 2021-05-27 20:00 | NUR ---
REMAINS INTUBATED AND ON VENT. VENT SETTINGS PER VENT INTERVENTION DOCUMENTATION. LSCTLC IN PLACE WITH PROPOFOL GTT AT 60 MCG/KG/MIN AND VERSED AT 4 MG/HR FOR SEDATION, RASS -4. PATIENT ASSISTING VENT. BREATH SOUNDS DIMINISHED THROUGHOUT LUNG SIMON. SHIFT ASSESSMENT COMPLETED. SCDS IN PLACE BILATERALLY. PATIENT ON AIR MATTRESS. AIR SCRUBBER ON IN ROOM. BILATERAL WRIST RESTRAINTS IN PLACE. VSS. TURNED AND REPOSITIONED. SR-ST ON MONITOR.
--- NOTE | 2021-05-27 20:25 | NUR ---
CALL TO DR NGUYEN REGARDING NEED FOR CLARIFICATION (PER [facility]) OF SODIUM BICARB ORDER. PER DR SAMUEL HOLD OFF ON SODIUM BICARB FOR TONIGHT AND CONTINUE IVF OF NS AT 50 ML/HR.
--- NOTE | 2021-05-27 22:00 | NUR ---
SEDATED ON VENT. REPOSITIONED. VSS. ST ON MONITOR.
[2021-05-28] VITALS (20 sets, daily range): BP systolic 102–170; BP diastolic 49–80
--- NOTE | 2021-05-28 | NUR ---
NO CHANGES TO REPORT. SAME VENT SETTINGS. VSS. ST ON MONITOR.
--- NOTE | 2021-05-28 01:06 | NUR ---
PATIENT RESP RATE IN HIGH 40'S LOW 50'S. VENT REPEATEDLY ALARMING. VERSED GTT INCREASED TO 5 MG/HR. PATIENT MEDICATED WITH FENTANYL 50 MCG IV ORDERED.
--- NOTE | 2021-05-28 01:20 | NUR ---
PATIENT RESP RATE NOW IN THE 30'S AT THIS TIME.
--- NOTE | 2021-05-28 02:00 | NUR ---
ST ON MONITOR. BP TRENDING UP. SAME VENT SETTINGS.
--- NOTE | 2021-05-28 03:30 | NUR ---
HEART RATE UP TO 130'S. RR 40'S. BP 168/80. LOPRESSOR 5 MG IVP FOR ELEVATED HR.
--- NOTE | 2021-05-28 04:15 | NUR ---
COMPLETE BED BATH GIVEN AND LINEN CHANGE DONE.
--- NOTE | 2021-05-28 05:20 | NUR ---
BLOOD DRAWN FROM CT FOR AM LABS. TLC PORTS FLUSHED AND PATENT.
--- NOTE | 2021-05-28 05:30 | NUR ---
RR IN THE 40'S. SATS 88-91% WADNER /RT. VENT ALARMING. SUX PER RT.
--- NOTE | 2021-05-28 05:46 | NUR ---
MEDICATED WITH FENTANYL 50 MCG IV ORDERED. VENT CHANGES PER RT-O2 INCREASED TO 100%, PEEP INCREASED TO 10.
[2021-05-28 05:49] LABS: URINE BILIRUBIN - DIPSTICK NEGATIVE (NEGATIVE); URINE BLOOD DIPSTICK NEGATIVE (NEGATIVE); URINE CLARITY CLOUDY; URINE COLOR YELLOW; URINE GLUCOSE - DIPSTICK NEGATIVE (NEGATIVE); URINE KETONE NEGATIVE (NEGATIVE); URINE LEUK ESTERASE NEGATIVE (Negative); URINE NITRITE - DIPSTICK NEGATIVE (Negative); URINE PH 5.5 (4.5-8.0); URINE PROTEIN - DIPSTICK TRACE mg/dL (NEG-TRACE); URINE UROBILINOGEN - DIPSTICK 0.2 E.U./dL (0.2)
--- NOTE | 2021-05-28 06:06 | NUR ---
ABG RESULTS CALLED TO [facility] BY [facility]/.
[2021-05-28 06:08] LABS: ALBUMIN 2.8 g/dL (3.2-5.0); CREATININE 4.6 mg/dL (0.7-1.3)
[2021-05-28 06:21] LABS: POTASSIUM 5.7 mmol/l (3.5-5.1)
--- NOTE | 2021-05-28 06:30 | NUR ---
DR LIAO PHONED BY [facility] WITH ABG RESULTS. NO ANSWER.
--- NOTE | 2021-05-28 06:40 | NUR ---
DR LIAO RETURNED CALL, ABG RESULTS REPORTED BY WAYNE. NEW ORDERS RECEIVED BY WAYNE TO INCREASE A/C RATE TO 28.
--- NOTE | 2021-05-28 07:00 | NUR ---
ASSUMED CARE OF PT FROM [facility]. UPON ASSESSMENT OF PT AT BEDSIDE REPORT WE DISCOVERED THE COPPOLA WAS CLOGGED. AFTER FLUSHING, 1300ML OF YELLOW URINE WITH SEDIMENT DRAINED. PT HR IS ST 130S. WILL MEDICATE WITH PRN MEDICATION WHEN DUE AT 930 PER EMAR. GTTS INFUSING PER EMAR. CALLED MITCHEL IN PHARMACY TO DISCUSS VERIFYING BICARB GTT THAT NEPHROLOGY ORDERED AT 1905 YESTERDAY.SHE IS CLARIFYING ORDER WITH MD. WILL CONTINUE CARE.
--- NOTE | 2021-05-28 20:00 | NUR ---
CONSTANTINET REMAINS INTUBATED AND ON VENT. VENT SETTINGS PER INTERVENTION SCREEN. RR 30'S. O2 SAT LOW 90'S. BREATH SOUNDS COARSE THROUGHOUT. SEDATED ON PROPOFOL GTT AT 60 MCG/KG/MIN AND VERSED GTT AT 60 MG/HR. RASS -4. SCD'S IN PLACE BILATERALLY. AIR MATTRESS IN USE. AIR SCRUBBER IN USE IN ROOM SHIFT ASSESSMENT COMPLETED. CARDIAC MOITOR SHOWS SR, HR 90'S.
--- NOTE | 2021-05-28 22:00 | NUR ---
VSS. REPOSITIONED. SR ON MONITOR.
--- NOTE | 2021-05-28 23:30 | NUR ---
O2 SAT 88-90% RR 40'S. HR 90'S. LAVAGED AND SUX ETT FOR SMALL AMOUNT OF THIN SECRETIONS. MEDICATED WITH FENTANYL 50 MCG IV ORDERED. CALLED RT TO EVALUATE PATIENT.
--- NOTE | 2021-05-28 23:40 | NUR ---
PEEP INCREASED FROM 10 TO 15 BY RT. O2 SAT 91-92%
[2021-05-29] VITALS (21 sets, daily range): BP systolic 87–155; BP diastolic 49–69
--- NOTE | 2021-05-29 02:00 | NUR ---
O2 SAT 89-91% WILL CONTIUE TO MONITOR PATIENT CLOSELY.
--- NOTE | 2021-05-29 04:15 | NUR ---
O2 SATS DROPPING TO 82-85% SUX PER ETT FOR MODERATE AMOUNT OF YELLOW, PINK TINGED SECRETIONS.
--- NOTE | 2021-05-29 04:45 | NUR ---
RT HERE FOR BLOOD DRAW FOR AM ABGS. PATIENT TURNED TO PRONE POSITION WITH ASSIST OF 4 NURSES AND RT.
--- NOTE | 2021-05-29 05:15 | NUR ---
O2 SAT VERY GRADUALLY PICKING UP TO MID 80'S. CONTINUES TO REST IN PRONE POSITION.
--- NOTE | 2021-05-29 06:00 | NUR ---
O2 SAT 88-91% PATIENT REMAINS INTUBATED ON VENT. SEDATED ON PROPOFOL AND VERSED GTTS WITH RASS -5.
[2021-05-29 06:18] LABS: HEMATOCRIT 35.5 % (39.0-50.0); IMMATURE GRANULOCYTES 2.3 % (0.0-5.0); MEAN CELL VOLUME 90.8 fL CALC (80.0-100.0); MEAN CORPUSCULAR HGB 28.1 pG CALC (26.0-32.0); NEUT# 13.31 thou/uL (1.82-7.42); RED BLOOD COUNT 3.91 mill/uL (4.70-6.10); RED CELL DISTRI WIDTH 16.2 % (11.5-15.5)
[2021-05-29 06:34] LABS: ALBUMIN 2.5 g/dL (3.2-5.0)
[2021-05-29 06:40] LABS: ALBUMIN 2.5 g/dL (3.2-5.0); BILIRUBIN, TOTAL 0.6 mg/dL (0.0-1.4); TOTAL PROTEIN 5.8 g/dL (6.3-8.2)
[2021-05-29 06:42] LABS: POTASSIUM 5.9 mmol/l (3.5-5.1)
[2021-05-29 06:43] LABS: CREATININE 7.4 mg/dL (0.7-1.3)
[2021-05-29 06:44] LABS: CREATININE 7.3 mg/dL (0.7-1.3)
[2021-05-29 06:51] LABS: C-REACTIVE PROTEIN 23.2 mg/dL (0-0.9)
--- NOTE | 2021-05-29 09:40 | NUR ---
FACETIMED WITH PT EMERGENCY CONTACT, SHE STATES SHE DOES NOT KNOW THIS MOJGAN AND THIS IS NOT THE PERSON SHE THOUGHT WE WERE CONTACTING HER ABOUT
--- NOTE | 2021-05-29 10:00 | NUR ---
CHARGING PT CELL PHONE IN ATTEMPT TO FIND FAMILY MEMBERS. RETURNED A PHONE CALL FOR A NUMBER WHO HAS BEEN CALLING HIM EVERYDAY AND REACHED A SISTER, DR. MCCARTHY SPOKE WITH CHRISTINE BEFORE THE CALL DISCONNECTED. CAONTINUED TO HAVE PHONE CHARGING AT STATION
--- NOTE | 2021-05-29 11:30 | NUR ---
RECIEVED A FACETIME CALL FROM Chaparro HERNANDEZ IN HIS CONTACTS. FROM [phone]. STATES HE IS PTS OLDER BROTHER. SHOWED HIM HIS BROTHER, AND THEN LET HIM SPEAK WITH ABOUT PT CONDITION WITH [facility] TRANSLATING AND RE ENFORCING PT CONDITION AND ANSWERING ANY FURTHER QUESTIONS. HE STATED HE WILL CALL BACK AFTER SPEAKING WITH CHILDREN TO LET US KNOW CODE STATUS. NO FAMILY IS LOCAL, ALL ARE IN [place].
--- NOTE | 2021-05-29 14:36 | NUR ---
ET TUBE ADVANCED TO 27@ LIP.
--- NOTE | 2021-05-29 20:00 | NUR ---
PATIENT REMAINS INTUBATED AND ON VENT. SEDATED ON PROPOFOL GTT WITH RASS -5. O2 SATS CONTINUE TO RUN IN THE MID 80'S. PATIENT RESTING IN SUPINE POSITION THERE WAS NO IMPROVEMENT IN O2 SATS WHILE PRONING EARLIER TODAY. BP STABLE ON LEVOPHED GTT. TOW MOTOR DRIVER SHOWS ST, HR 120'S. SHIFT ASSESSMENT COMPLETED.
--- NOTE | 2021-05-29 20:10 | NUR ---
PATIENT BROTHER RAFAELA PHONED IN FOR UPDATE, INFORMED HIM OF CRITICAL CONDITION OF HIS BROTHER, HE STATES THEY HAVE NOT MADE A DECISION ON DRN STATUS.
--- NOTE | 2021-05-29 21:00 | NUR ---
BP 99/S. PROPOFOL DEREASED TO 50 MCG/KG/MIN.
--- NOTE | 2021-05-29 22:00 | NUR ---
TEMP 101. MEDICATED WITH TYLENOL 60 MG RECTAL SUPPOSITORY. TURNED AND REPOSITIONED PATIENT. ICE PACKS TO AXILLA AND BASE OF NECK. O2 SATS HAVE DROPPED TO 74-77% CALL TO RT TO EVALUATE PATIENT. SUX PER ETT AND ORALLY FOR SCANT AMOUNT OF SECRETIONS.
--- NOTE | 2021-05-29 22:03 | NUR ---
MEDICATED WITH FENTANYL 50 MCG ORDERED.
--- NOTE | 2021-05-29 22:05 | NUR ---
CALL TO DR HURD AND INFORMED HIM OF DOP IN O2 SATS, RR, HR 130'S AND BP. NO NEW ORDERS AT THIS TIME.
--- NOTE | 2021-05-29 23:00 | NUR ---
O2 SAT CONTINUES 78% SAME VENT SETTINGS EARLIER. ST ON MONITOR, HR 130'S.
[2021-05-30] VITALS (45 sets, daily range): BP systolic 66–114; BP diastolic 43–55
--- NOTE | 2021-05-30 | NUR ---
NO CAHNGES TO REPORT. O2 SAT REMAINS IN THE 70'S. ST ON MONITOR, 130'S.
--- NOTE | 2021-05-30 01:00 | NUR ---
02 SATS REMAIN IN THE 70'S. ST ON MONITOR, HR 130'S.
--- NOTE | 2021-05-30 02:00 | NUR ---
NO CHANGES TO REPORT. PATIENT REMAINS INTUBATED AND SEDATED, WEANING PROPOFOL D/T HYPOTENSION-CURRENTLY AT 30 MCG. LEVOPHED AT [address] ON MONITOR.
--- NOTE | 2021-05-30 03:00 | NUR ---
COMPLETE BED BATH AND LINENS CHANGED. REPOSITONED IN BED.
--- NOTE | 2021-05-30 04:00 | NUR ---
PROPOFOL CURRENTLY AT 20 MCG/ RASS -5. LEVOPHED AT 8 MCG. O2 SAT REMAIN IN THE 70'S. VENT SETTINGS UNCHANGED. CONTINUES IN ST ON MONITOR, HR 120'S.
[2021-05-30 05:17] LABS: BASO% 0 % (0-3); EOS% 1 % (0-8); HEMATOCRIT 34.8 % (39.0-50.0); HEMOGLOBIN 10.9 g/dl (14.0-18.0); IMMATURE GRANULOCYTES 2.7 % (0.0-5.0); LYMPH% 2 % (15-41); MEAN CELL VOLUME 89.9 fL CALC (80.0-100.0); MEAN CORPUSCULAR HGB 28.2 pG CALC (26.0-32.0); MEAN CORPUSCULAR HGB CONC 31.3 g/dL CAL (32.0-36.0); MONO% 3 % (2-13); NEUT# 19.62 thou/uL (1.82-7.42); NEUT% 92 % (42-76); RED BLOOD COUNT 3.87 mill/uL (4.70-6.10); RED CELL DISTRI WIDTH 16.5 % (11.5-15.5)
[2021-05-30 05:21] LABS: PLATELET COUNT 173 thou/uL (130-400)
--- NOTE | 2021-05-30 06:00 | NUR ---
NO CHANGES TO REPORT. REMAINS IN CRITICAL CONDITION.
[2021-05-30 07:57] LABS: ALBUMIN 2.8 g/dL (3.2-5.0); ALKALINE PHOSPHATASE 161 u/l (38-126); BILIRUBIN, TOTAL 0.7 mg/dL (0.0-1.4); CHLORIDE 104 mmol/l (95-108); SGOT/AST 79 u/l (19-48); SODIUM 138 mmol/l (137-146); TOTAL PROTEIN 6.4 g/dL (6.3-8.2)
--- NOTE | 2021-05-30 08:00 | NUR ---
PT SEEN SEDATED, VENTED, AT REST IN THE BED. NO PURPOSEFUL MOVEMENT NOTED, DIPRIVAN IS AT 15 MKM. LEVOPHED AT 8 MAINTAINS ADEQUATE PRESSURE. PT SEEN BY DR HURD THIS MORNING, WILL TRY TO TRANSFER PT TO [facility] FOR DIALYSIS. NO CONTACT WITH FAMILY THIS MORNING.
[2021-05-30 08:12] LABS: ANION GAP 18 (6-22 (CALC)); BUN 116 mg/dL (8-23); BUN/CREATININE RATIO 11 (12-20 (CALC)); C-REACTIVE PROTEIN > 27.0 mg/dL (0-0.9); CARBON DIOXIDE 23 mmol/l (22-30); GFR 5 ML/MIN (>=60 (CALC)); GFR FOR AFR.AMER. 6 ML/MIN (>=60 (CALC))
[2021-05-30 08:13] LABS: CREATININE 10.1 mg/dL (0.7-1.3)
[2021-05-30 08:14] LABS: POTASSIUM 6.8 mmol/l (3.5-5.1)
--- NOTE | 2021-05-30 11:43 | NUR ---
PT'S BLOOD PRESSURE DROPPING, UPPED LEVOPHED TO 18 MKM, PRESSURE NOW 107/52, UP FROM 70s SYSTOLIC. OXYGEN SATS NOW IN THE UPPER 60s TO LOW 70s. BROTHER GIGI WAS CALLED, DID NOT WANT TO BE THE ONE TO MAKE HIM A DNR. DAUGHTER HAS CALLED, WANTS TO FACETIME PRIOR TO PERMITTING DNR. THAT IS IN PROCESS NOW.
--- NOTE | 2021-05-30 12:29 | NUR ---
DAUGHTER VAHID WAS ABLE TO SEE HER FATHER VIA CELLPHONE WITH ASSIST FROM [facility]. VAHID STILL WANTED TO CONFER WITH OTHER FAMILY MEMBERS BEFORE GIVING OKAY FOR DNR STATUS. PT WITH BETTER BP AT THIS TIME, 102/52, BUT OXYGEN NOW READS 64% ON MAXED OUT VENT SETTINGS.
--- NOTE | 2021-05-30 14:59 | NUR ---
DAUGHTER VAHID SPOKE WITH [facility], STILL DOES NOT WANT TO MAKE FATHER A DNR. PT CONTINUES BEFORE, BLOOD PRESSURE AROUND 90 SYSTOLIC, OXYGEN SATS CONTINUE LOW AT 68%. FAMILY TO LET US KNOW WHEN THEY DECIDE TO MAKE PT DNR.
--- NOTE | 2021-05-30 16:44 | NUR ---
CODE BLUE CALLED.
--- NOTE | 2021-05-30 17:50 | NUR ---
PT CODED AND THIS AFTERNOON. HEART RATE WENT FROM 90 TO 30, BLOOD PRESSURE EXTREMELY LOW WHEN CODE WAS CALLED. AFTER SEVERAL ROUNDS OF CPR AND MEDICINE ADMINISTRATION, CODE WAS CALLED BY DR MORAN AT 1725. BROTHER GIGI WAS CALLED, HE IS TRYING TO GET HOLD OF DAUGHTER VAHID TO INFORM HER. [employer] RULED HIM OUT FOR ANY DONATION PER COVID-19.
--- NOTE | 2021-05-30 20:13 | NUR ---
attempt made per [employer] to brother in [facility] for dispostion of body. she eventually talked to family in [place] translated by milana in [place].
--- NOTE | 2021-05-30 22:05 | NUR ---
[facility] here.
--- NOTE | 2021-05-30 22:30 | NUR ---
[facility] left.
== END 2021-05-30 17:25 | disposition expired | DRG 207 ==
LOC: ED 08:06 → ED-I 09:25 → ED 09:47 → MS2 09:48 → ICU 05-20 23:26
PROVIDERS: Family Medicine; Internal Medicine; Internal Medicine Nephrology; Nurse Practitioner; ADMIT Hospitalist; ATTEND Hospitalist
PROC: XW033E5 Introduction of Remdesivir Anti-infective into Peripheral Vein, Percutaneous Approach, New Technology Group 5 (ICD-10-PCS; principal; 2021-05-20)
PROC: 5A1955Z Respiratory Ventilation, Greater than 96 Consecutive Hours (ICD-10-PCS; 2021-05-25)
PROC: 0BH17EZ Insertion of Endotracheal Airway into Trachea, Via Natural or Artificial Opening (ICD-10-PCS; 2021-05-25)
PROC: 02HV33Z Insertion of Infusion Device into Superior Vena Cava, Percutaneous Approach (ICD-10-PCS; 2021-05-25)
PROC: 5A12012 Performance of Cardiac Output, Single, Manual (ICD-10-PCS; 2021-05-30)
DX: U07.1 COVID-19 (principal); J12.82 Pneumonia due to coronavirus disease 2019; J96.01 Acute respiratory failure with hypoxia; N17.0 Acute kidney failure with tubular necrosis; E87.2 Acidosis; I95.89 Other hypotension; E86.9 Volume depletion, unspecified; E87.5 Hyperkalemia; E11.22 Type 2 diabetes mellitus with diabetic chronic kidney disease; N18.30 Chronic kidney disease, stage 3 unspecified; K76.0 Fatty (change of) liver, not elsewhere classified
CPT/HCPCS: J0282; J1650; J2060; J2250; S0164